=== PATIENT | male | born 1965 | race Caucasian/White ===

== ENCOUNTER 2022-12-20 21:54 | Emergency (ER) | payer BC ==
[~2022-12-20] VITALS: Ht 170.2 cm; Wt 73.0 kg
[2022-12-20] MEDS ORDERED: ACETAMINOPHEN ES 500 MG TABLET ONE (23:26)
[2022-12-20] MEDS ORDERED: PROCHLORPERAZINE EDISYLATE 10 MG/2 ML VIAL ONE (23:26)
[2022-12-20] MEDS ORDERED: diphenhydrAMINE HCL 50 MG/ML VIAL ONE (23:26)
[2022-12-20] MEDS: PROCHLORPERAZINE EDISYLATE 10 MG/2 ML VIAL IVP ONE (23:44)
[2022-12-20] MEDS: diphenhydrAMINE HCL 50 MG/ML VIAL IV ONE (23:44)
[2022-12-20] MEDS: IV NS 0.9% 1,000 ML BAG IV ONE (23:44)
[2022-12-20] MEDS: ACETAMINOPHEN ES 500 MG TABLET PO ONE (23:44)
[2022-12-20 23:57] LABS: BASOPHILS % (AUTO) 0.5 % (0.0-2.0); EOSINOPHILS % (AUTO) 0.3 % (0.0-6.0); HEMATOCRIT 44 % (39-51); HEMOGLOBIN 14.4 g/dL (13.5-17.5); LYMPHOCYTES # (AUTO) 0.2 K/uL (0.8-4.8); LYMPHOCYTES % (AUTO) 2.8 % (20.0-44.0); MEAN CORPUSCULAR HEMOGLOBIN 28 PG (26.0-33.0); MEAN CORPUSCULAR HGB CONC 33 g/dl (31.0-36.0); MEAN CORPUSCULAR VOLUME 87 fL (80-96); MONOCYTES # (AUTO) 0.8 K/uL (0.1-1.30); MONOCYTES % (AUTO) 12.7 % (2.0-12.0); NEUTROPHILS # (AUTO) 5.3 K/uL (1.8-8.9); NEUTROPHILS % (AUTO) 83.7 % (43.0-81.0); PLATELET COUNT (AUTO) 190 K/uL (150-450); RED BLOOD CELL COUNT(AUTO) 5.06 MIL/uL (4.5-6.0); RED CELL DISTRIBUTION WIDTH 13.7 % (11.5-15.0); WHITE BLOOD COUNT (AUTO) 6.3 K/uL (4.3-11.0)
[2022-12-21 00:21] LABS: CREATININE 1.2 mg/dL (0.6-1.3)
[2022-12-21 02:17] VITALS: BP 157/102; TEMP 98.9; O2SAT 96
== END 2022-12-21 02:18 | disposition home or self-care (01) ==
LOC: ER 21:58
DX: U07.1 COVID-19 (principal); R51.9 Headache, unspecified; J45.909 Unspecified asthma, uncomplicated; Z88.2 Allergy status to sulfonamides
CPT/HCPCS: 99285; 96374; 96361; 70450; 71045; 96375; 87426; 93005; 85025; 80048; 36415; J0780; J1200; J7030; C9803